=== PATIENT | female | born 1980 ===

== ENCOUNTER 2017-03-10 12:39 | Emergency (ER) | payer MEDICAID ==
[2017-03-10] MEDS ORDERED: oxyCODONE 5 mg Immediate Release Tab PO STA (13:17)
[2017-03-10] MEDS ORDERED: Oxycodone/Acetaminophen 5/325 mg Tab ONE (13:39)
[2017-03-10 13:56] LABS: RBC URINE 15 /hpf (0-3); URINE BACTERIA RARE (<OCC); URINE BILIRUBIN NEGATIVE (NEGATIVE); URINE BLOOD 2+ (NEGATIVE); URINE COLOR Yellow (YELLOW); URINE GLUCOSE (UA) NORMAL (Normal); URINE KETONE NEGATIVE (NEGATIVE); URINE LEUKOCYTE ESTERASE 3+ Leu/uL (Negative); URINE PROTEIN NEGATIVE (NEGATIVE); URINE UROBILINOGEN NORMAL mg/dL (0.2-1.0); WBC URINE 107 /hpf (0-5)
--- NOTE | 2017-03-10 13:56 | C.PDOC ---
History Of Present Illness 36 year old patient presents to the ED complaining of right lower back pain for 2 days. Patient states she has a history of sciatica, but this pain is different. She also has a history of multiple kidney stones. Patient denies any fever, vomiting, dysuria, hematuria, numbness, weakness, bowel or bladder dysfunction. Time Seen by Provider: 03/10/17 13:17 Chief Complaint (Nursing): Back Pain History Per: Patient History/Exam Limitations: no limitations Onset/Duration Of Symptoms: Days (2) Current Symptoms Are (Timing): Still Present Quality Of Discomfort: "Pain" Severity: Moderate Pain Scale Rating Of: 4 Previous Symptoms: Back Pain Associated Symptoms: None Recent travel outside of the [place]: No Past Medical History Reviewed: Historical Data, Nursing Documentation, Vital Signs Vital Signs: Last Vital Signs Temp 97.7 F 03/10/17 16:22 Pulse 71 03/10/17 16:22 Resp 18 03/10/17 16:22 BP 131/86 03/10/17 16:22 Pulse Ox 98 03/10/17 16:51 - Medical History PMH: HTN, Hypothyroidism Family History: States: Unknown Family Hx - Social History Hx Alcohol Use: No Hx Substance Use: No Review Of Systems Except As Marked, All Systems Reviewed And Found Negative. Constitutional: Negative for: Fever Gastrointestinal: Negative for: Vomiting Genitourinary: Negative for: Dysuria, Incontinence, Hematuria Musculoskeletal: Positive for: Back Pain (right lower) Neurological: Negative for: Weakness, Numbness Physical Exam - Physical Exam Appears: Non-toxic, Other (moderate distress) Skin: Warm, Dry Head: Atraumatic, Normacephalic Neck: Normal ROM, Supple Chest: Symmetrical Cardiovascular: Rhythm Regular Respiratory: Normal Breath Sounds, No Rales, No Rhonchi, No Wheezing Gastrointestinal/Abdominal: Soft, No Tenderness Back: CVA Tenderness (right), No Vertebral Tenderness Extremity: Normal ROM Extremity: Bilateral: Atraumatic Neurological/Psych: Oriented x3, Normal Speech, Normal Cognition, Normal Motor, Normal Sensation Gait: Steady ED Course And Treatment O2 Sat by Pulse Oximetry: 98 (room air) Pulse Ox Interpretation: Normal - CT Scan/US Abdomen/Pelvis CT w/o contrast Other Rad Studies (CT/US): Read By Radiologist (Jose De Jesus Rivas), Radiology Report Reviewed CT/US Interpretation: PROCEDURE: CT Abdomen and Pelvis without intravenous contrast. HISTORY: right flank pain - h/o kidney stones. COMPARISON: None. TECHNIQUE: Axial and reformatted coronal and sagittal CT images of the abdomen and pelvis were obtained without IV or oral contrast administration.. Contrast Dose: 0. Radiation dose: Total exam DLP = 1018.16 mGy-cm. This CT exam was performed using one or more of the following dose reduction techniques: Automated exposure control, adjustment of the mA and/or kV according to patient size, and/or use of iterative reconstruction technique. FINDINGS: LOWER THORAX : Unremarkable. LIVER: Unremarkable. No gross lesion or ductal dilatation. GALLBLADDER AND BILE DUCTS: Large gallstone seen measures 2.4 centimeter. No evidence of acute cholecystitis. The common bile duct is not dilated. PANCREAS : Unremarkable. No gross lesion or ductal dilatation. SPLEEN: Unremarkable. ADRENALS: Unremarkable. No mass. KIDNEYS AND URETERS: 3 millimeter nonobstructing stone at the midpole of the right kidney. Low-attenuation cystic lesion at the mid to lower pole right kidney measures 2.5 centimeter. There are multiple nonobstructing calculi at the left kidney. There are adjacent large nonobstructing calculi at the lower pole of the left kidney with the largest calculus measures 9.5 millimeter. No evidence of left hydronephrosis. VASCULATURE: Unremarkable. No aortic aneurysm. BOWEL: . No obstruction. No gross mural thickening. Few colonic diverticulosis are seen without evidence of diverticulitis. Mild constipation is also noted. APPENDIX: No evidence of appendicitis. PERITONEUM: Unremarkable. No free fluid. No free air. LYMPH NODES: Unremarkable. No enlarged lymph nodes. BLADDER: Unremarkable. REPRODUCTIVE: 3.6 centimeters cystic lesion at the left adnexa. BONES: No acute fracture. OTHER FINDINGS: None. IMPRESSION: Gallstone without evidence of acute cholecystitis. 3 millimeter nonobstructing calculus at the midpole of the right kidney. Multiple nonobstructing calculi in the left kidney larger and more on the lower pole. No evidence of hydronephrosis or hydroureter. 3.6 centimeter cyst at the left adnexa. Progress Note: Plan: Abdomen/Pelvis CT w/o contrast, Flexeril, Oxycodone, Urine culture, Urinalysis Disposition - Disposition Referrals: [facility] Marisol Req, [Non-Staff] - Disposition: HOME/ ROUTINE Disposition Time: 15:20 Condition: IMPROVED Additional Instructions: Thank you for letting us take care of you today. Your provider was Dr. Garza. You were treated for a UTI and kidney stones. The emergency medical care you received today was directed at your acute symptoms. If you were prescribed any medication, please fill it and take as directed. It may take several days for your symptoms to resolve. Return to the Emergency Department if your symptoms worsen, do not improve, or if you have any other problems. Please contact your doctor or call one of the physicians/clinics you have been referred to that are listed on the Patient Visit Information form that is included in your discharge packet. Bring any paperwork you were given at discharge with you along with any medications you are taking to your follow up visit. Our treatment cannot replace ongoing medical care by a primary care provider (PCP) outside of the emergency department. Thank you for allowing the [facility] team to be part of your care today. Follow up with your doctor in 2-3 days for re-evaluation. Prescriptions: Cyclobenzaprine [Cyclobenzaprine HCl] 10 mg PO Q8 PRN #20 tab PRN Reason: Muscle Spasm Ibuprofen [Motrin] 600 mg PO Q6 PRN #20 tab PRN Reason: Pain, Moderate (4-7) Sulfamethoxazole/Trimethoprim [Bactrim DS 800 mg-160 mg] 1 tab PO BID #14 tab Instructions: Kidney Stones (ED), Urinary Tract Infection in Women (ED), How to Strain Your Urine (ED) - Clinical Impression Clinical Impression: Low back pain, Kidney stones, UTI (urinary tract infection) - Scribe Statement The provider has reviewed the documentation as recorded by the Gilibmirella Rainey Provider Attestation: All medical record entries made by the Scribe were at my direction and personally dictated by me. I have reviewed the chart and agree that the record accurately reflects my personal performance of the history, physical exam, medical decision making, and the department course for this patient. I have also personally directed, reviewed, and agree with the discharge instructions and disposition.
[2017-03-10 15:08] VITALS: RESP 18; TEMP 97.7
--- NOTE | 2017-03-10 15:13 | CT ---
PROCEDURE: CT Abdomen and Pelvis without intravenous contrast HISTORY: right flank pain - h/o kidney stones COMPARISON: None. TECHNIQUE: Axial and reformatted coronal and sagittal CT images of the abdomen and pelvis were obtained without IV or oral contrast administration.. Contrast Dose: 0 Radiation dose: Total exam DLP = 1018.16 mGy-cm. This CT exam was performed using one or more of the following dose reduction techniques: Automated exposure control, adjustment of the mA and/or kV according to patient size, and/or use of iterative reconstruction technique. FINDINGS: LOWER THORAX: Unremarkable. LIVER: Unremarkable. No gross lesion or ductal dilatation. GALLBLADDER AND BILE DUCTS: Large gallstone seen measures 2.4 centimeter. No evidence of acute cholecystitis. The common bile duct is not dilated. PANCREAS: Unremarkable. No gross lesion or ductal dilatation. SPLEEN: Unremarkable. ADRENALS: Unremarkable. No mass. KIDNEYS AND URETERS: 3 millimeter nonobstructing stone at the midpole of the right kidney. Low-attenuation cystic lesion at the mid to lower pole right kidney measures 2.5 centimeter. There are multiple nonobstructing calculi at the left kidney. There are adjacent large nonobstructing calculi at the lower pole of the left kidney with the largest calculus measures 9.5 millimeter. No evidence of left hydronephrosis. VASCULATURE: Unremarkable. No aortic aneurysm. BOWEL: . No obstruction. No gross mural thickening. Few colonic diverticulosis are seen without evidence of diverticulitis. Mild constipation is also noted. APPENDIX: No evidence of appendicitis. PERITONEUM: Unremarkable. No free fluid. No free air. LYMPH NODES: Unremarkable. No enlarged lymph nodes. BLADDER: Unremarkable. REPRODUCTIVE: 3.6 centimeters cystic lesion at the left adnexa. BONES: No acute fracture. OTHER FINDINGS: None. IMPRESSION: Gallstone without evidence of acute cholecystitis. 3 millimeter nonobstructing calculus at the midpole of the right kidney. Multiple nonobstructing calculi in the left kidney larger and more on the lower pole. No evidence of hydronephrosis or hydroureter. 3.6 centimeter cyst at the left adnexa.
[2017-03-10 16:24] VITALS: BP 131/86; PULSE 71
[2017-03-10 16:49] VITALS: O2SAT 98
== END 2017-03-10 16:24 | disposition home or self-care (01) ==
LOC: C.ER 12:39
DX: N39.0 Urinary tract infection, site not specified (principal); N20.0 Calculus of kidney; M54.5 Low back pain; I10 Essential (primary) hypertension; E03.9 Hypothyroidism, unspecified